=== PATIENT | male | born 1935 | race Two or more races ===

== ENCOUNTER 2021-12-26 08:21 | Inpatient (IN) | payer OTHER ==
[~2021-12-26] VITALS: Ht 176.5 cm; Wt 70.3 kg
--- NOTE | 2021-12-26 08:28 | NUR ---
TO ER BED 8. [id number] FROM HOME, PER EMS WAS FOUND BY IN THE BATHROOM THIS MORNING DENIES PAIN, NO OBVIOUS TRAUMA, 81/59 BP ON SCENE, GIVEN 250ML DUB ROOM ENGINEER BP 92/50. PT ATTACHED TO MONITOR, BLOOD PRESSURE 96/75 UPON ARRIVAL. BLOOD SUGAR 155 UPON ARRIVAL. WARM BLANKET PROVIDED FOR COMFORT. AWAITING MD ORDERS.
[2021-12-26] MEDS ORDERED: IV NS 0.9% 1,000 ML BAG IV ONE ×2 (08:30→09:30)
--- NOTE | 2021-12-26 08:33 | NUR ---
COVID TEST COLLECTED AND SENT
[2021-12-26] MEDS ORDERED: LISI1TAB32 PO (08:44)
[2021-12-26] MEDS ORDERED: ALLO300T2 PO (08:44)
[2021-12-26] MEDS ORDERED: SIMV10TA98 PO (08:44)
[2021-12-26] MEDS ORDERED: FINA5TAB11 PO (08:44)
[2021-12-26] MEDS ORDERED: LABE200T5 PO (08:44)
--- NOTE | 2021-12-26 08:49 | NUR ---
MERI AT BEDSIDE [phone]
[2021-12-26 08:56] LABS: BASOPHILS % (AUTO) 0.1 % (0.0-2.0); HEMATOCRIT 44 % (39-51); HEMOGLOBIN 14.5 g/dL (13.5-17.5); LYMPHOCYTES # (AUTO) 0.5 K/uL (0.8-4.8); LYMPHOCYTES % (AUTO) 4.5 % (20.0-44.0); MEAN CORPUSCULAR HGB CONC 33 g/dl (31.0-36.0); MEAN CORPUSCULAR VOLUME 93 fL (80-96); MONOCYTES # (AUTO) 0.7 K/uL (0.1-1.30); MONOCYTES % (AUTO) 6.6 % (2.0-12.0); NEUTROPHILS # (AUTO) 9.4 K/uL (1.8-8.9); NEUTROPHILS % (AUTO) 88.8 % (43.0-81.0); PLATELET COUNT (AUTO) 135 K/uL (150-450); RED BLOOD CELL COUNT(AUTO) 4.73 MIL/uL (4.5-6.0); WHITE BLOOD COUNT (AUTO) 10.6 K/uL (4.3-11.0)
[2021-12-26] MEDS ORDERED: TDAP [DIPH/PERTUSSIS/TET] 0.5 ML VIAL IM ONE ×2 (08:57→09:44)
[2021-12-26] MEDS ORDERED: ACETAMINOPHEN 325 MG TABLET ONE (08:57)
[2021-12-26] MEDS ORDERED: ACETAMINOPHEN 325 MG TABLET PO ONE (09:00)
[2021-12-26] MEDS: TDAP [DIPH/PERTUSSIS/TET] 0.5 ML VIAL IM ONE ×2 (09:14→09:56)
[2021-12-26 09:15] LABS: ALANINE AMINOTRANSFERASE 21 U/L (12-78); ALBUMIN 3.2 g/dL (3.4-5.0); ALKALINE PHOSPHATASE 84 U/L (46-116); ASPARTATE AMINOTRANSFERASE 32 U/L (15-37); BILIRUBIN,DIRECT 0.4 mg/dL (0.0-0.2); BILIRUBIN,TOTAL 1.2 mg/dL (0.2-1.0); CALCIUM, SERUM 10.3 mg/dL (8.5-10.1); CARBON DIOXIDE 27 mmol/L (21-32); CHLORIDE 102 mmol/L (98-107); CREATININE 1.5 mg/dL (0.6-1.3); GLUCOSE 159 mg/dL (74-106); POTASSIUM 3.6 mmol/L (3.5-5.1); SODIUM SERUM 137 mmol/L (136-145); TOTAL PROTEIN, SERUM 6.6 g/dL (6.4-8.2); UREA NITROGEN, BLOOD 26 mg/dL (7-18)
[2021-12-26 09:26] LABS: CREATINE KINASE, TOTAL 477 U/L (39-308)
[2021-12-26] MEDS ORDERED: CEFTRIAXONE 1 G in IV D5W 50 ML IV ONE (09:30)
[2021-12-26] MEDS ORDERED: CEFTRIAXONE 1GM BAG (ER ONLY) 50 ML IV ONE (09:34)
[2021-12-26] MEDS ORDERED: LATA2.5D15 EACHEYE (09:48)
[2021-12-26] MEDS ORDERED: AMLO-212 PO (09:48)
[2021-12-26] MEDS ORDERED: DORZ10DR11 EACHEYE (09:48)
--- NOTE | 2021-12-26 09:48 | NUR ---
RYAN EPRP PAGED.
--- NOTE | 2021-12-26 11:01 | NUR ---
PT TAKEN TO CT VIA AMANDA
--- NOTE | 2021-12-26 11:34 | NUR ---
ROOM 322-2
--- NOTE | 2021-12-26 12:08 | NUR ---
REPORT GIVEN TO ANDRE FOR ALLEN
--- NOTE | 2021-12-26 12:50 | NUR ---
TELE ADMITTING NOTES: ADMITTED 86YO MALE PATIENT FROM EMERGENCY DEPT. ARRIVED IN MED SURG UNIT @1250 VIA GURNEY ACCOMPANIED BY TRANSPORTER. PATIENT ALERT AND ORIENTED X 3-4, HARD OF HEARING. MS JEREZ () AT BED SIDE. NO SOB OR CARDIAC STRESS NOTED ON ROOM AIR AND TOLERATING WELL. DENIES ANY PAIN AT THIS TIME. ON ANGLEDOZER OPERATOR WITH CURRENT READING OF@ 69BPM. ABDOMEN SOFT AND NON DISTENDED. LUNGS CLEAR UPON AUSCULTATION. SKIN ISSUES PRIOR TO ADMISSION: FACIAL ABRASION, SCATTERED FACIAL RASHES AND R KNEE ABRASION, BRUNO HEEL REDNESS, BRUNO TOE NAILS FUNGAL INFECTION, FOR WOUND CONSULT. PHOTOS TAKEN AND FILED TO PATIENT'S CHART. SAFETY MEASURES INITIATED: BED LOCKED AND IN LOWEST POSITION, SIDE RAILS UP X 2. CALL LIGHT IN EASY REACH FOR HELP. ORIENTED TO UNIT, STAFFS AND ROOM MATE. WOUND CARE DONE. WILL MONITOR PATIENT ACCORDINGLY.
--- NOTE | 2021-12-26 12:52 | NUR ---
PT TRANSFERRED TO 322 VIA [facility] ACLS PROTOCOL. WARM HANDOFF GIVEN TO RN ASSIGNED.
[2021-12-26] MEDS ORDERED: Z GUARD REMEDY 4 OZ OINT TP PRN (13:30)
[2021-12-26] MEDS ORDERED: ONDANSETRON HCL/PF 4 MG/2 ML VIAL IVP PRN (13:30)
[2021-12-26] MEDS ORDERED: POLYETHYLENE GLYCOL 3350 17 GM POWD.PACK PO PRN (13:30)
[2021-12-26] MEDS ORDERED: ACETAMINOPHEN 325 MG TABLET PO PRN (13:30)
--- NOTE | 2021-12-26 13:30 | NUR ---
RN NOTES: MARCELO (LAB) CALLED RELAYING CRITICAL LAB RESULTS. LACTIC ACID 2.2, INFORMED DR MATA. LACTIC ACID TRENDING DOWN.
[2021-12-26] MEDS: IV D5/0.45 NACL 1,000 ML IV PRN (14:02)
--- NOTE | 2021-12-26 14:50 | NUR ---
RN NOTES: URINE COLLECTED. CALLED LAB ([facility]) UA READY AND PROPERLY LABELLED READY TO MANAGER MANAGED CARE.
[2021-12-26] MEDS: LATANOPROST EYE DROP 0.005% 2.5 ML BOTTLE EACHEYE SCH (17:19)
--- NOTE | 2021-12-26 18:47 | NUR ---
ORCHID HAND CLOSING NOTES: PATIENT IN BED WITH AT BED SIDE. PATIENT A/O X 3. HARD OF HEARING. NO SOB OR CARDIAC DISTRESS NOTED, ON ROOM AIR AND TOLERATING WELL. ON HEALTH PLAN MANAGER WITH CURRENT READING OF: CONTROLLED AFIB @57-100 BPM. SAFETY MEASURES MAINTAINED: BED IN LOWEST AND LOCKED POSITION, SIDE RAILS UP X 2. CALL LIGHT IN EASY REACH FOR HELO. WILL MONITOR AND REPORT FOR ANY SIGNIFICANT CHANGES. ENDORSED TO NOC SHIFT FOR CONTINUITY OF CARE.
--- NOTE | 2021-12-26 19:45 | NUR ---
BARK PRESS OPERATOR OPENING NOTES RECEIVED PATIENT IN BED; AWAKE, ALERT AND ORIENTED X 3; HARD OF HEARING; @ BEDSIDE. ON OXYGEN INHALATION @ 2LPM VIA NASAL CANNULA; TOLERATING WELL. BREATHING EVEN AND NONLABORED. IN NO ACUTE DISTRESS. NO SOB NOTED. ON TELEMETRY MONITORING WITH CURRENT READING OF CONTROLLED A FIB @ 55-100 BPM. WITH IV ACCESS ON RIGHT ANTECUBITAL 18g; PATENT AND INTACT INFUSING WITH D5 1/2 NS 1L REGULATED @ 80 ML/HR; FLUSHES WELL. NO INFILTRATION NOTED. FALL AND SAFETY PRECAUTIONS IMPLEMENTED: CALL LIGHT AND TABLE WITHIN REACH, SIDE RAILS UP X3, BED IN LOWEST AND LOCKED POSITION. WILL CONTINUE PLAN OF CARE.
[2021-12-26 20:00] VITALS: BP_SYST 101; BP_DIAS 50; BP_DIAS 55
[2021-12-26] MEDS ORDERED: ZOLPIDEM TARTRATE 5 MG TABLET PO PRN (22:00)
[2021-12-26 22:10] LABS: BILIRUBIN,URINE MODERATE (NEGATIVE); COLOR,URINE YELLOW (YELLOW); LEUKOCYTE ESTERASE ,URINE NEGATIVE (NEGATIVE); NITRITE, URINE POSITIVE (NEGATIVE); PROTEIN,URINE TRACE mg/dl (NEGATIVE); UGLUCOSE NEGATIVE (NEGATIVE)
[2021-12-26] MEDS: HEPARIN SODIUM, PORCINE 5000 UNITS/1 ML VIAL SQ SCH (22:28)
[2021-12-26] MEDS: TIMOLOL MAL/DORZOLAM HCL OPHTH 10 ML BOTTLE EACHEYE SCH (22:57)
[2021-12-27] VITALS: BP 131/80
[2021-12-27 02:53] LABS: BACTERIA,URINE Rare /HPF (None Seen); RBC,URINE 0-2 /HPF (0-2); SQUAMOUS EPITHELIAL CELL,UR Rare /HPF (None Seen); WBC,URINE 0-2 /HPF (0-3)
--- NOTE | 2021-12-27 03:48 | NUR ---
RN NOTES PATIENT REMOVED HIS TELEMETRY BOX; REFUSED TO PUT IT BACK AGAIN. PATIENT VERBALIZED "I DON'T WANT IT, ITS HURTING ME." WILL CONTINUE TO MONITOR PT. TELEMETRY BOX ON STANDBY MODE.
[2021-12-27 06:24] LABS: BASOPHILS % (AUTO) 0.3 % (0.0-2.0); EOSINOPHILS % (AUTO) 0.7 % (0.0-6.0); HEMATOCRIT 40 % (39-51); HEMOGLOBIN 13.1 g/dL (13.5-17.5); LYMPHOCYTES # (AUTO) 1.2 K/uL (0.8-4.8); MEAN CORPUSCULAR HGB CONC 33 g/dl (31.0-36.0); MEAN CORPUSCULAR VOLUME 93 fL (80-96); MONOCYTES # (AUTO) 1.1 K/uL (0.1-1.30); MONOCYTES % (AUTO) 9.5 % (2.0-12.0); NEUTROPHILS # (AUTO) 9.2 K/uL (1.8-8.9); NEUTROPHILS % (AUTO) 79.5 % (43.0-81.0); PLATELET COUNT (AUTO) 114 K/uL (150-450); RED BLOOD CELL COUNT(AUTO) 4.26 MIL/uL (4.5-6.0); WHITE BLOOD COUNT (AUTO) 11.6 K/uL (4.3-11.0)
[2021-12-27] MEDS: IV D5/0.45 NACL 1,000 ML IV PRN (06:46)
[2021-12-27 06:55] LABS: THYROID STIMULATING HORMONE 2.603 uIU/mL (0.358-3.74)
[2021-12-27 06:56] LABS: CALCIUM, SERUM 9.5 mg/dL (8.5-10.1); CARBON DIOXIDE 26 mmol/L (21-32); CHLORIDE 106 mmol/L (98-107); CREATININE 0.9 mg/dL (0.6-1.3); GLUCOSE 95 mg/dL (74-106); MAGNESIUM 1.7 mg/dL (1.8-2.4); PHOSPHORUS 2.2 mg/dL (2.5-4.9); SODIUM SERUM 141 mmol/L (136-145); UREA NITROGEN, BLOOD 17 mg/dL (7-18)
[2021-12-27 07:02] LABS: POTASSIUM 2.8 mmol/L (3.5-5.1)
--- NOTE | 2021-12-27 07:03 | NUR ---
RN NOTES RECEIVED CRITICAL LAB RESULT: POTASSIUM - 2.8; ON DUTY NOTIFIED; WILL ENDORSED TO FINA MARS FOR FOLLOW UP.
--- NOTE | 2021-12-27 07:10 | NUR ---
PROFESSOR OF BIOCHEMISTRY CLOSING NOTES PATIENT IN BED; AWAKE, A/O X 3; HARD OF HEARING. ON O2 INHALATION @ 2LPM VIA NC; WELL TOLERATED. RESPIRATIONS EVEN AND NONLABORED. NOT IN ANY FORM OF RESPIRATORY DISTRESS. WITH RIGHT ANTECUBITAL IV ACCESS 18g; PATENT AND INTACT INFUSING WITH D5 1/2 NS 1L REGULATED @ 80 ML/HR; FLUSHES WELL. NO INFILTRATION NOTED. PATIENT REFUSED TO BE ATTACHED TO TELEMETRY BOX; TELEMETRY BOX STILL ON STANDBY MODE. FALL AND SAFETY PRECAUTIONS IN PLACE: CALL LIGHT AND TABLE WITHIN REACH, SIDE RAILS UP X3, BED IN LOWEST AND LOCKED POSITION. ENDORSED TO MORNING SHIFT FOR ALLEN.
[2021-12-27] MEDS: PANTOPRAZOLE 40 MG TABLET.DR PO SCH (08:05)
[2021-12-27 08:09] VITALS: BP 93/60
[2021-12-27] MEDS: FINASTERIDE (5 MG) 5 MG TABLET PO SCH (08:57)
[2021-12-27] MEDS: ALLOPURINOL 100 MG TABLET PO SCH (08:58)
[2021-12-27] MEDS: HEPARIN SODIUM, PORCINE 5000 UNITS/1 ML VIAL SQ SCH ×2 (09:00→21:57)
[2021-12-27] MEDS: LATANOPROST EYE DROP 0.005% 2.5 ML BOTTLE EACHEYE SCH ×2 (09:02→16:18)
[2021-12-27] MEDS: POTASSIUM CL. PREMIX PERIPHER. 50 ML IV SCH ×2 (09:15→11:32)
[2021-12-27] MEDS: POTASSIUM CHLORIDE 20 MEQ TAB.PRT.SR PO SCH ×3 (09:15→13:37)
[2021-12-27] MEDS ORDERED: CEFTRIAXONE 1 G in IV D5W 50 ML IV SCH (10:00)
[2021-12-27 12:00] VITALS: BP 90/58
[2021-12-27] MEDS: Magnesium 1GM/D5W 100ML PREMIX 100 ML IV SCH ×2 (12:21→14:47)
[2021-12-27] MEDS ORDERED: K PHOS NEUTRAL 250 MG TABLET PO ONE (15:00)
[2021-12-27 16:00] VITALS: BP 103/56
--- NOTE | 2021-12-27 17:44 | NUR ---
END OF SHIFT SUMMARY A/O X1-2. KAW. FORGETFUL WITH PERIODS OF CONFUSION. FREQUENT RE-ORIENTATION NEEDED CONTROLLED AFIB ONT THE TELEMONITOR K+ 2.8, REPLACED WITH K Cl 20 mEqs IVPB Mg 1.7, REPLACED WITH Mg 2g R HAND 22G, INTACT AND PATENT INDEPENDENT WITH REPOSITIONING SAFETY MEASURES AND FALL PRECAUTIONS MAINTAINED AT ALL TIMES WILL ENDORSE CONTINUITY OF CARE TO ONCOMING SHIFT
--- NOTE | 2021-12-27 19:30 | NUR ---
TEXTILES PRINTER NOTE FINA JOHNSON FROM [facility] CALLED SAYING BED IS READY FOR PATIENT AND THEY HAVE FAXED THE TRANSFER PAPER WORKS TO CASE MANAGEMENT. ALTHOUGH PER [facility], [facility] HAVE NOT RECEIVED ANYTHING FROM THEM. PER ELIZABETH SHE WILL FAXED THEM AGAIN.
--- NOTE | 2021-12-27 19:30 | NUR ---
FORM BUILDER OPENING RECEIVED PATIENT IN BED, AT BED SIDE. PATIENT A/OX3, [place]. NO S/S OF APPARENT DISTRESS IN 2LPM OF O2 VIA NC. DENIES ANY PAIN NOR DISCOMFORT. IV NS D5 1/2 NS RUNNING @80MLS.HR. RE-ORIENTED AND ENCOURAGED WITH THE USE OF CALL LIGHT. SAFETY IN PLACE. WILL CONTINUE WITH PLAN FOR PATIENT.
[2021-12-27 20:00] VITALS: BP 100/65
--- NOTE | 2021-12-27 20:10 | NUR ---
BUS STEWARD NOTE MADE HUMBERTO MATA NP AWARE ABOUT THE TRANSFER TO GET D/C ORDERS. FLEET ADMINISTRATIVE ASSISTANT ORDERED MIDODRINE 5MG X1. ORDER CARRIED OUT.
[2021-12-27] MEDS ORDERED: CEFT1VIA15 IV (20:29)
[2021-12-27] MEDS ORDERED: MIDODRINE HCL (5MG) 5 MG TABLET PO ONE (20:30)
--- NOTE | 2021-12-27 21:00 | NUR ---
PROPERTY FIELD INSPECTOR NOTE NO FAXED RECEIVED, CONFIRMED WITH FINA JOHNSON. PER ELIZABETH SHE'S JUST GOING TO NOTE THAT WE ARE UNABLE TO RECEIVED TRANSFER PAPER WORKS. PER ELIZABETH, PATIENT IS GOING TO ROOM 5209 A. AND WILL BE PICKED UP @2330 BY [facility]. CALLED PATIENT'S , MERI AND MADE HER AWARE OF THE SITUATION AND TRANSFER. AGREED AND ACKNOWLEDGED.
--- NOTE | 2021-12-27 21:30 | NUR ---
ACCEPTING PROVIDER AT [facility] IS DR. BRAVO
[2021-12-27] MEDS: TIMOLOL MAL/DORZOLAM HCL OPHTH 10 ML BOTTLE EACHEYE SCH (22:00)
--- NOTE | 2021-12-27 22:30 | NUR ---
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
--- NOTE | 2021-12-28 00:29 | NUR ---
ORDER EXPEDITER NOTE CALLED [facility] FOR REPORT. ON HOLD THE WHOLE TIME. WILL TRY AGAIN. TRANSPORT CALLED AGAIN, AND ADMINISTRATIVE COORDINATOR @0100 AM NOW.
--- NOTE | 2021-12-28 01:09 | NUR ---
CALLED [facility] FOR REPORT THEY SAID THEY WILL CALL BACK.
--- NOTE | 2021-12-28 07:18 | NUR ---
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 still not here. in case patient still refused per marisa lopez at [facility], call # for john to coordinate.
--- NOTE | 2021-12-28 07:20 | NUR ---
needs attended. endorsed to Neema for continuity of care plan.
--- NOTE | 2021-12-28 07:30 | NUR ---
RN Opening Note PT AOx2, able to express needs. States he is ready for transfer and want to move to [facility]. VSS no signs of distress. Introduced self to patient and made him aware of plan of care. All safety precautions taken, call light and table within reach, bed at lowest position. Will continue to monitor and follow up on transfer
[2021-12-28 08:00] VITALS: BP 98/60
[2021-12-28] MEDS: ALLOPURINOL 100 MG TABLET PO SCH (09:15)
[2021-12-28] MEDS: PANTOPRAZOLE 40 MG TABLET.DR PO SCH (09:15)
[2021-12-28] MEDS: FINASTERIDE (5 MG) 5 MG TABLET PO SCH (09:15)
[2021-12-28] MEDS: LATANOPROST EYE DROP 0.005% 2.5 ML BOTTLE EACHEYE SCH (09:16)
[2021-12-28] MEDS: HEPARIN SODIUM, PORCINE 5000 UNITS/1 ML VIAL SQ SCH (09:16)
--- NOTE | 2021-12-28 09:30 | NUR ---
header up Notes. PT AOx2, states he is ready for transfer and would like to continue with plan to transfer to [place]. Per night nurse all patient belongings with , he has his watch on. Patient agrees with plan. [facility] Unit [facility][id number], [facility] transport at bedside to transfer patient , [place] expecting patient. All safety precautions taken, patient transferred safely with no incidents.
== END 2021-12-28 09:40 | disposition short-term general hospital (02) | DRG 73 ==
LOC: ER 08:26 → TELE 12:20
PROVIDERS: ADMIT Nurse Practitioner Family; ATTEND Nurse Practitioner Family
DX: G90.8 Other disorders of autonomic nervous system (principal); G93.41 Metabolic encephalopathy; N17.0 Acute kidney failure with tubular necrosis; E87.2 Acidosis; E44.1 Mild protein-calorie malnutrition; N39.0 Urinary tract infection, site not specified; R62.7 Adult failure to thrive; E78.5 Hyperlipidemia, unspecified; I10 Essential (primary) hypertension; N40.0 Benign prostatic hyperplasia without lower urinary tract symptoms; S00.81XA Abrasion of other part of head, initial encounter; S80.211A Abrasion, right knee, initial encounter; W18.30XA Fall on same level, unspecified, initial encounter; Y92.002 Bathroom of unspecified non-institutional (private) residence as the place of occurrence of the external cause; Z79.899 Other long term (current) drug therapy; F09 Unspecified mental disorder due to known physiological condition; E88.09 Other disorders of plasma-protein metabolism, not elsewhere classified; M10.9 Gout, unspecified; E87.6 Hypokalemia; E83.39 Other disorders of phosphorus metabolism; E83.42 Hypomagnesemia; H40.9 Unspecified glaucoma; B96.89 Other specified bacterial agents as the cause of diseases classified elsewhere
CPT/HCPCS: 36415; 70450-TC; 71045-TC; 72125-TC; 73564-TC; 76770-TC; 80048-TC; 80076-TC; 81001; 82550-TC; 82553; 82607-TC; 82962-TC; 83605-TC; 83735-TC; 83880; 84100-TC; 84439-TC; 84443-TC; 84484-TC; 85025-TC; 87040-TC; 87081-TC; 87086-TC; 90715; 94799-TC; 97116-TC; 97530-TC; C9803; G0378; J0696; J1644; J3480; J3490; J7030; J7050; J7060

== ENCOUNTER 2022-01-27 16:57 | Emergency (ER) | payer OTHER ==
[~2022-01-27] VITALS: Ht 170.2 cm; Wt 72.6 kg
[~2022-01-27 16:57] MED LIST: ALLO300T2 PO; CEFT1VIA15 IV; DORZ10DR11 EACHEYE; FINA5TAB11 PO; LATA2.5D15 EACHEYE; SIMV10TA98 PO
--- NOTE | 2022-01-27 17:00 | NUR ---
BIB RA 88 FROM HOME FOR GENERALIZED WEAKNESS, PT NOT EATING X 2 DAYS. BG 80 PER EMS. PT ATTACHED TO MONITOR, HEART RATE IS ELEVATED, MD AWARE. A&OX2. WARM BLANKET PROVIDED FOR COMFORT. AWAITING MD ALBRECHT.
[2022-01-27] MEDS ORDERED: IV NS 0.9% 500 ML BAG IV ONE ×2 (17:30→20:30)
--- NOTE | 2022-01-27 17:48 | NUR ---
CALLED [facility] AND OPENED UP A CASE FOR THE PT
--- NOTE | 2022-01-27 17:54 | NUR ---
PT TAKEN TO CT VIA AMANDA
[2022-01-27 18:09] LABS: BASOPHILS % (AUTO) 0.4 % (0.0-2.0); EOSINOPHILS % (AUTO) 1.5 % (0.0-6.0); HEMATOCRIT 45 % (39-51); HEMOGLOBIN 14.8 g/dL (13.5-17.5); LYMPHOCYTES # (AUTO) 1.1 K/uL (0.8-4.8); LYMPHOCYTES % (AUTO) 10.6 % (20.0-44.0); MEAN CORPUSCULAR HGB CONC 33 g/dl (31.0-36.0); MEAN CORPUSCULAR VOLUME 95 fL (80-96); MONOCYTES # (AUTO) 0.8 K/uL (0.1-1.30); MONOCYTES % (AUTO) 7.9 % (2.0-12.0); NEUTROPHILS % (AUTO) 79.6 % (43.0-81.0); PLATELET COUNT (AUTO) 177 K/uL (150-450); RED BLOOD CELL COUNT(AUTO) 4.78 MIL/uL (4.5-6.0)
[2022-01-27 18:29] LABS: ALANINE AMINOTRANSFERASE 15 U/L (12-78); ALBUMIN 2.7 g/dL (3.4-5.0); ALKALINE PHOSPHATASE 83 U/L (46-116); ASPARTATE AMINOTRANSFERASE 21 U/L (15-37); BILIRUBIN,DIRECT 0.3 mg/dL (0.0-0.2); BILIRUBIN,TOTAL 0.8 mg/dL (0.2-1.0); CALCIUM, SERUM 10.1 mg/dL (8.5-10.1); CARBON DIOXIDE 29 mmol/L (21-32); CHLORIDE 107 mmol/L (98-107); CREATININE 0.8 mg/dL (0.6-1.3); GLUCOSE 83 mg/dL (74-106); POTASSIUM 3.4 mmol/L (3.5-5.1); SODIUM SERUM 142 mmol/L (136-145); TOTAL PROTEIN, SERUM 6.4 g/dL (6.4-8.2); UREA NITROGEN, BLOOD 32 mg/dL (7-18)
--- NOTE | 2022-01-27 18:40 | NUR ---
COVID TEST COLLECTED AND SENT
--- NOTE | 2022-01-27 18:55 | NUR ---
CALLED [facility] TO SPEAK TO ORLINDA DOC
--- NOTE | 2022-01-27 21:56 | NUR ---
PT IS ACCEPTED AT [facility] GOING TO ER. PT IS UNDER THE CARE OF DR. BURDICK CALL [phone] FOR REPORT.
--- NOTE | 2022-01-27 21:57 | NUR ---
[facility] AT [id number]
--- NOTE | 2022-01-27 22:03 | NUR ---
[facility] AT PT'S BEDSIDE TO TRANSFER PT TO [facility]
--- NOTE | 2022-01-27 22:09 | NUR ---
REPORT GIVEN TO FINA VIEIRA FOR [facility]
[2022-01-27 22:11] VITALS: BP 108/58
--- NOTE | 2022-01-27 22:49 | NUR ---
[facility] 99 AT BEDSIDE FOR TRANPORT TO [facility]
== END 2022-01-27 22:51 | disposition short-term general hospital (02) ==
LOC: ER 17:00
DX: R62.7 Adult failure to thrive (principal); Z68.25 Body mass index [BMI] 25.0-25.9, adult; E86.0 Dehydration; Z20.822 Contact with and (suspected) exposure to COVID-19; J98.11 Atelectasis; I48.20 Chronic atrial fibrillation, unspecified; Z79.899 Other long term (current) drug therapy; Z85.46 Personal history of malignant neoplasm of prostate; I10 Essential (primary) hypertension; F03.90 Unspecified dementia, unspecified severity, without behavioral disturbance, psychotic disturbance, mood disturbance, and anxiety
CPT/HCPCS: 99285; 96360; 70450; 71045; 87426; 93005; 84145; 85025; 80048; 87040 ×2; 83605 ×2; 80076; 36415; 84484; 85730; J7040 ×2; C9803